=== PATIENT | female | born 1985 | race Hispanic/Latino ===

== ENCOUNTER 2017-05-31 11:56 | Outpatient (CLI) | payer OTHER ==
--- NOTE | 2017-05-31 16:02 | NM ---
RADIONUCLIDE DIURETIC RENOGRAM: Date: 05/31/17 HISTORY: Hydronephrosis, staghorn calculus in the left kidney. RADIOPHARMACEUTICAL: 8.7 millicuries technetium-99m MAG3 injected intravenously. DIURETIC: 40 mg IV Lasix administered intravenously 15 minutes prior to the radiopharmaceutical. Patient has a Neal catheter in the bladder. FINDINGS: There is good blood flow, tracer uptake, and normal tracer excretion by the right kidney. There is decreased blood flow with slow uptake and slow excretion of tracer material by the left kidn ey. The renogram curves are downsloping on both sides. The differential function measures 30% on the left and 70% on the right. IMPRESSION: Decreased perfusion and function of the left kidney. No evidence of high grade obstruction. POS: [facility]
== END 2017-05-31 11:57 | disposition home or self-care (01) ==
LOC: NM 11:56
PROVIDERS: ATTEND Family Medicine
DX: N20.0 Calculus of kidney (principal)
CPT/HCPCS: 78708; A4641; A9562